=== PATIENT | male | born 1960 | race Caucasian/White ===

== ENCOUNTER 2020-12-15 07:21 | Emergency (ER) | payer OTHER ==
[~2020-12-15] VITALS: Ht 185.4 cm; Wt 112.5 kg
[~2020-12-15 07:21] MED LIST: ACYCLOVIR 400400 MG PO; BACTRIM DS TAB1 EACH PO; BAYER CHEWABLE81 MG PO; BRILINTA90 MG; COREG CR20 MG PO; KEFLEX500 MG PO; LISINOPRIL PO; LISINOPRIL20 MG PO; NORVASC10 MG PO; PREDNISONE 20 M20 M1 PO; PRINIVIL20 M1 PO; SPIRONOLACTONE25 M1 PO; VISTARIL 25 MG25 M1 PO; VITAMIN D PO; ZOCOR40 MG; ZPAK PO
[2020-12-15] MEDS ORDERED: SPIRONOLACTONE25 MG PO (07:31)
[2020-12-15 08:04] LABS: ABSOLUTE BASOPHILS 0.1 thou/uL (0.0-0.2); ABSOLUTE EOSINOPHILS 0.2 thou/uL (0.0-0.7); ABSOLUTE LYMPHOCYTES 1.6 thou/uL (0.8-5.3); ABSOLUTE MONOCYTES 0.7 thou/uL (0.0-1.2); BASOPHILS 0.9 %; EOSINOPHILS 1.6 %; HEMATOCRIT 42.8 % (42.0-52.0); HEMOGLOBIN 14.4 gm/dL (14.0-18.0); LYMPHOCYTES 16.4 %; MCH 31.5 pg (26.0-34.0); MCHC 33.7 g/dL (28.0-37.0); MCV 93.3 fL (80.0-100.0); MONOCYTES 7.5 %; MPV 7.2 fl. (7.2-11.1); NUCLEATED RBCS 0 /100WBC; PLATELET COUNT* 167 thou/uL (150-400); POLYS 73.6 %; RBC 4.58 mil/uL (4.50-6.00); RDW-CV 15.4 % (10.5-14.5); WBC 9.5 thou/uL (4.0-11.0)
[2020-12-15 08:13] LABS: CALCIUM 8.1 mg/dL (8.5-10.1); CREATININE 1.5 mg/dL (0.6-1.3); POTASSIUM 4.1 mmol/L (3.5-5.1)
[2020-12-15 08:23] LABS: ALBUMIN 2.9 g/dL (3.4-5.0); TOTAL BILIRUBIN 0.8 mg/dL (<0.1-1.0); TOTAL PROTEIN 5.8 g/dL (6.4-8.2)
[2020-12-15 10:15] LABS: CHOLESTEROL 184 mg/dL (<200); HDL CHOLESTEROL 53 mg/dL (>40); LDL CHOLESTEROL 122 mg/dL (<100); TC:HDL 3.5 Ratio (Not establshd); TRIGLYCERIDE 49 mg/dL (<150); VLDL 10 mg/dL (<40)
[2020-12-15 10:16] LABS: SERUM ASSESSMENT Clear
[2020-12-15 10:35] VITALS: BP 130/94
--- NOTE | 2020-12-15 14:41 | EKG ---
[place] [address] ELECTROCARDIOGRAM REPORT Name: ROBI,SYBIL Edgar Room: [facility]#: [id number] Admission: 12/15/20 Attend Phys: Discharge: 12/15/20 Date of : 64 Date of Service: 12/15/20811 Report #: [id number] THIS REPORT FOR: //name// [facility] ED Test Date: 2020-12-15 Test Time: 08:12:19 Pat Name: SYBIL ROSENBAUM Department: Room: Gender: Mill Tender Washing: UNKNOWN : 1960 Requested By: Conner Frank Order Number: [id number] MD: Simon Singh Measurements Intervals [place] Rate: 72 P: 51 DE: 219 QRS: -56 QRSD: 137 T: 114 QT: 410 QTc: 449 Interpretive Statements Sinus rhythm Prolonged DE interval Left atrial enlargement Left bundle branch block Baseline wander in lead(s) V2 Compared to ECG 11/15/2014 22:46:08 First degree AV block now present Atrial abnormality now present Left bundle-branch block now present Ventricular premature complex(es) no longer present ST (T wave) deviation no longer present Electronically Signed On 12-15-2020 14:41:13 CDT by Simon Singh [email or web address] <ELECTRONICALLY SIGNED> By: Simon Singh MD, [facility] 12/15/20 1441 1 1 Simon Singh MD, [facility] /EPI
== END 2020-12-15 10:56 | disposition home or self-care (01) ==
LOC: M.ERS 07:21
PROVIDERS: Emergency Medicine Emergency Medical Services; Registered Nurse
DX: I11.0 Hypertensive heart disease with heart failure (principal); I50.9 Heart failure, unspecified; N28.9 Disorder of kidney and ureter, unspecified; E78.5 Hyperlipidemia, unspecified; I25.10 Atherosclerotic heart disease of native coronary artery without angina pectoris; Z79.899 Other long term (current) drug therapy

== ENCOUNTER 2021-07-01 11:43 | Inpatient (IN) | payer OTHER ==
[~2021-07-01] VITALS: Ht 185.4 cm; Wt 113.4 kg
[~2021-07-01 11:43] MED LIST changes: +SPIRONOLACTONE25 MG PO
[2021-07-01 12:34] LABS: HEMOGLOBIN 14.7 gm/dL (14.0-18.0); MCH 30.3 pg (26.0-34.0); MCHC 31.9 g/dL (28.0-37.0); MCV 95.1 fL (80.0-100.0); MPV 7.1 fl. (7.2-11.1); NUCLEATED RBCS 0 /100WBC; PLATELET COUNT* 256 thou/uL (150-400); RBC 4.84 mil/uL (4.50-6.00); RDW-CV 15.8 % (10.5-14.5); WBC 16.5 thou/uL (4.0-11.0)
[2021-07-01 12:44] LABS: CALCIUM 8.6 mg/dL (8.5-10.1); CREATININE 1.8 mg/dL (0.6-1.3); POTASSIUM 4.2 mmol/L (3.5-5.1)
[2021-07-01 12:55] LABS: ALBUMIN 2.9 g/dL (3.4-5.0); TOTAL BILIRUBIN 0.4 mg/dL (<0.1-1.0); TOTAL PROTEIN 5.7 g/dL (6.4-8.2)
[2021-07-01 12:58] VITALS: BP 140/95
[2021-07-01 13:22] LABS: ABSOLUTE LYMPHOCYTES 1.7 thou/uL (0.8-5.3); ABSOLUTE MONOCYTES 0.8 thou/uL (0.0-1.2); CLUMPED PLTS FEW; PLATELET ESTIMATE ADEQUATE
[2021-07-01 13:30] VITALS: BP 131/82
--- NOTE | 2021-07-01 14:26 | EKG ---
[place] [address] ELECTROCARDIOGRAM REPORT Name: SYBIL ROSENBAUM Room: [facility]#: [id number] Admission: 07/01/21 Attend Phys: Discharge: Date of : 64 Date of Service: 07/01/21 1250 Report #: [id number] THIS REPORT FOR: //name// [facility] ED Test Date: 2021-07-01 Test Time: 12:50:48 Pat Name: SYBIL ROSENBAUM Department: Room: Gender: Manager Lvn: : 1960 Requested By: Mauro Hayes Order Number: [id number] MD: Simon Singh Measurements Intervals [place] Rate: 96 P: 42 MS: 196 QRS: -85 QRSD: 155 T: 88 QT: 404 QTc: 511 Interpretive Statements Sinus rhythm Occasional PVCs Left atrial enlargement Right bundle branch block with left anterior hemiblock Baseline wander in lead(s) V2 Compared to ECG 12/15/2020 08:12:19 Ventricular premature complex(es) now present Right bundle-branch block now present First degree AV block no longer present Left bundle-branch block no longer present Electronically Signed On 07-01-2021 14:26:06 OPTIMIZATION SPECIALIST by Simon Singh [email or web address] <ELECTRONICALLY SIGNED> By: Simon Singh MD, [facility] 07/01/21 1426 1250 1250 Simon Singh MD, [facility] /EPI
[2021-07-01 16:14] LABS: CHOLESTEROL 193 mg/dL (<200); HDL CHOLESTEROL 54 mg/dL (>40); LDL CHOLESTEROL 124 mg/dL (<100); TC:HDL 3.6 Ratio (Not establshd); TRIGLYCERIDE 79 mg/dL (<150); VLDL 16 mg/dL (<40)
[2021-07-01 16:18] LABS: SERUM ASSESSMENT Clear
[2021-07-01 17:30] VITALS: BP 108/77
[2021-07-01 21:30] VITALS: BP 105/75
[2021-07-02] VITALS (8 sets, daily range): BP systolic 99–150; BP diastolic 67–93
[2021-07-02 08:06] LABS: CALCIUM 8.2 mg/dL (8.5-10.1); CREATININE 1.6 mg/dL (0.6-1.3); POTASSIUM 4.3 mmol/L (3.5-5.1)
--- NOTE | 2021-07-02 13:51 | NUR ---
PT WENT TO [facility] FOR NST AND BACK TO UNIT AT 1323
--- NOTE | 2021-07-02 15:34 | 2DMMODE ---
[place] [address] 2 D/M-MODE ECHOCARDIOGRAM Name: ROBI,SYBIL Edgar Room: [address] IN [place]#: [id number] Admission: 07/01/21 Attend Phys: Jose Golden Discharge: Date of : 64 Date of Service: 07/02/21 1534 Report #: [id number] THIS REPORT FOR: cc: Chun Fonseca Bradley L. DO Liston, Michael J. MD [facility] ~ APPROVED REPORT Study performed: 07/02/2021 14:43:16 EXAM: Comprehensive 2D, Doppler, and color-flow Echocardiogram Patient Location: In-Patient Room #: er Status: routine BSA: 2.35 HR: 110 bpm BP: 145/70 mmHg Rhythm: NSR Other Information Study Quality: Good Indications Congestive Heart Failure CAD Echo Enhancing Agent Indication: Rule out thrombus Agent(s) / Amount(s) Used: Optison 3 cc 2D Dimensions IVSd: 13.93 (7-11mm) LVOT Diam: 22.31 (18-24mm) LVDd: 61.12 mm PWd: 7.62 (7-11mm) Ascending Ao: 26.76 (22-36mm) LVDs: 51.15 (25-40mm) Aortic Root: 33.86 mm Volumes Left Atrial Volume (Systole) LA ESV Index: 56.30 mL/m2 Aortic Valve AoV Peak Usman.: 1.20 m/s AO Peak Gr.: 5.74 mmHg LVOT Max P.[address] [address] 2 D/M-MODE ECHOCARDIOGRAM Name: SYBIL ROSENBAUM Room: [address]#: [id number] Admission: 07/01/21 Attend Phys: Jose Golden Discharge: Date of : 64 Date of Service: 07/02/21 1534 Report #: [id number] Mean Gr.: 3.50 mmHg LVOT Mean P.53 mmHg LVOT Max V: 0.53 m/s AO V2 VTI: 14.37 cm LVOT Mean V: 0.33 m/s PRANAV (VTI): 1.79 cm2 LVOT V1 VTI: 6.60 cm TDI Medial E' Usman.: 0.05 m/s Pulmonary Valve PV Peak Usman.: 1.14 m/s PV Peak Gr.: 5.21 mmHg Tricuspid Valve RAP Estimate: 15.00 mmHg TR Peak Gr.: 52.20 mmHg RVSP: 67.00 mmHg PA Pressure: 67.00 mmHg Left Ventricle Left ventricle is mildly dilated. There is severe global hypokinesis of the left ventricle. Mild concentric left ventricular hypertrophy. Left ventricular systolic function is severely decreased. There is an apical thrombus in the left ventricle. LVEF is 20-25%. This study is not technically sufficient to allow evaluation of the LV diastolic function. Right Ventricle Right ventricle is mildly dilated. The right ventricular systolic function is normal. Atria Left atrium is moderately dilated. Right atrium is mildly dilated. Aortic Valve Mild aortic valve sclerosis. No aortic regurgitation is present. Mild aortic stenosis. Mitral Valve The mitral valve is normal in structure. Mild mitral regurgitation. No evidence of mitral valve stenosis. Tricuspid Valve The tricuspid valve is normal in structure. Trace tricuspid regurgitation. Moderate pulmonary hypertension. Pulmonic Valve The pulmonary valve is normal in structure. [place] [address] 2 D/M-MODE ECHOCARDIOGRAM Name: SYBIL ROSENBAUM Room: [address] IN [facility]#: [id number] Admission: 07/01/21 Attend Phys: Jose Golden Discharge: Date of : 64 Date of Service: 07/02/21 1534 Report #: [id number] valvular regurgitation. Great Vessels The aortic root is normal in size. IVC is dilated and collapses <50% with inspiration. Pericardium There is no pericardial effusion. <Conclusion> Left ventricle is mildly dilated. Mild concentric left ventricular hypertrophy. Left ventricular systolic function is severely decreased. LVEF is 20-25%. There is severe global hypokinesis of the left ventricle. There is an apical thrombus in the left ventricle. Right ventricle is mildly dilated. Left atrium is moderately dilated. Right atrium is mildly dilated. Mild aortic valve sclerosis. Mild aortic stenosis. Mild mitral regurgitation. Trace tricuspid regurgitation. Moderate pulmonary hypertension. IVC is dilated and collapses <50% with inspiration. <ELECTRONICALLY SIGNED> By: Yaw Saucedo MD, FACC 07/02/21 1534 1534 1534 Yaw Saucedo MD, FACC /INF
--- NOTE | 2021-07-02 16:28 | NUR ---
UPDATED PT'S RE: PLAN OF CARE.
--- NOTE | 2021-07-02 16:40 | NUR ---
admit to rm 222 oriented to rm and call light denies pain instructed to call for assistance
--- NOTE | 2021-07-02 17:37 | CARDNUC ---
[place] [address] CARDIAC NUCLEAR IMAGING REPORT Name: SYBIL ROSENBAUM Room: [address] IN [facility]#: [id number] Admission: 07/01/21 Attend Phys: Jose Golden Discharge: Date of : 64 Date of Service: 07/02/21 1737 Report #: [id number] THIS REPORT FOR: cc: Chun Fonseca Bradley L. DO Liston, Michael J. MD [facility] ~ APPROVED REPORT Imaging Protocol: Stress Tc-99m/Rest Tc-99m 1 day Study performed: 07/01/2021 14:36:00 Indication: Dyspnea Patient Location: In-Patient Stress Nurse: Ludy Albaardo RN Ht: 6 ft 1 in Wt: 250 lbs BSA: 2.37 m2 BMI: 32.97 Medical History Medical History: CAD s/p AK, CAD s/p stent Medications: asa-81, carvedilol, lisinopril, spironolactone Allergies: No known drug allergies Cardiac Risk Factors: Age, HTN, Hyperlipidemia Previous Cardiac Procedures: PCI, Myocardial infarction Exercise History: Sedentary Meds Held (24 hrs): carvedilol Resting Data Rest SPECT myocardial perfusion imaging was performed in supine position 30 minutes following the intravenous injection of 9.8 mCi of Tc-99m Sestamibi. Time of rest injection: 08:25 The images were gated to evaluate regional wall motion and calculate left ventricular ejection fraction. Administration Route: IV Administration Site: Right Wrist Pharmacologic Stress Pharmacologic stress test was performed by injecting Regadenoson 0.4 mg IV push over 10-15 seconds immediately followed by the intravenous injection of 30.4 mCi of Tc-99m Sestamibi. Time of stress injection: 10:50 Administration Route: [place] [address] CARDIAC NUCLEAR IMAGING REPORT Name: SYBIL ROSENBAUM Room: [address]#: [id number] Admission: 07/01/21 Attend Phys: Jose Golden Discharge: Date of : 64 Date of Service: 07/02/21 1737 Report #: [id number] Administration Site: Right Wrist Heart Rate at time of stress injection: 114 bpm. Gated Stress SPECT was performed 90 minutes after stress injection. The images were gated to evaluate regional wall motion and calculate left ventricular ejection fraction. Stress Test Details Stress Test: Pharmacologic stress testing performed using 0.4 mg of regadenoson per 5 mL given IV over 10 seconds. Reason for pharmacologic stress test: physical limitation. HR Max Heart Rate (APMHR): 162 bpm Resting HR: 109 bpm Target HR (85% APMHR): 137 bpm Max HR Achieved: 117 bpm % of APMHR: 72 Recovery HR: 114 bpm BP Resting BP: 121/94 mmHg Max BP: 128/96 mmHg Recovery BP: 119/94 mmHg ECG Resting ECG: Sinus tachycardia with left bundle branch block Stress ECG: Sinus tachycardia with left bundle branch block ST Change: None Arrhythmia: PVCs Recovery ECG: Sinus tachycardia with left bundle branch block Recovery ST Change: None Recovery Arrhythmia: PVCs Clinical Reason for Termination: Completed protocol The patient tolerated Lexiscan protocol without significant cardiac symptoms. He did have some abdominal pain relieved with caffeine. Nurse Comments que had troponin of 87 yesterday with troponin of [address] Francisco ARMENDARIZ and Jodi Durand said that it is ok to do emerson. Patient was given 60 mg of caffeine ivp after 4 min post lexe injection for abdominal pain. [place] [address] CARDIAC NUCLEAR IMAGING REPORT Name: SYBIL ROSENBAUM Room: [address]#: [id number] Admission: 07/01/21 Attend Phys: Jose Goldne Discharge: Date of : 64 Date of Service: 07/02/21 1737 Report #: [id number] Stress ECG Conclusion The baseline twelve-lead EKG shows sinus tachycardia with left bundle branch block and occasional PVCs. EKGs obtained during and post Lexiscan infusion show continued sinus tachycardia with left bundle branch block and PVCs. No acute changes were noted with Lexiscan stress. Study Quality Study: Fair Artifact: Moderate Diaphragmatic artifact Study Data At rest, the left ventricular ejection fraction was 15%.. Post stress, the left ventricular ejection was 8%.. TID = 1.02. Perfusion Perfusion images obtained at rest show severe photopenia involving the basal to apical inferior wall and apex. This extends to the septum. Perfusion images obtained post Lexiscan stress show a persistent defect from the base to apical inferior wall and apex. No reversible defects were identified. There is significant diaphragmatic attenuation artifact. These images appear to represent apical and at least in part inferior wall infarct without ischemia. Wall Motion Severe global hypokinesis without obvious focal wall motion abnormality. Nuclear Conclusion ECG Findings: non-diagnostic Clinical Findings: negative for ischemia Nuclear Findings: negative for ischemia Exercise Capacity: not assessed Left Ventricular Function: abnormal Risk Study: high Perfusion images show probable inferior and apical infarct without ischemia. The left ventricle is dilated. There is severe global hypokinesis. This is a high risk study based on severe LV systolic dysfunction. <Conclusion> The baseline twelve-lead EKG shows sinus tachycardia with left bundle branch block and occasional PVCs. EKGs obtained during and post Lexiscan infusion show continued sinus [place] [address] CARDIAC NUCLEAR IMAGING REPORT Name: ROBI,SYBIL Edgar Room: [address] IN [facility]#: [id number] Admission: 07/01/21 Attend Phys: Jose Golden Discharge: Date of : 64 Date of Service: 07/02/21 1737 Report #: [id number] branch block and PVCs. No acute changes were noted with Lexiscan stress. <ELECTRONICALLY SIGNED> By: Yaw Saucedo MD, FACC 07/02/21 1737 36 36 Yaw Saucedo MD, FACC /INF
[2021-07-03] VITALS: BP 112/64
[2021-07-03 04:00] VITALS: BP 127/78
--- NOTE | 2021-07-03 04:25 | NUR ---
RESTING WELL. PT IS HAVING PERIODS OF SLEEP APNEA, O2 SAT 88-91%. O2 APPLIED AT 2L/NC AT APPROX 0000 TONIGHT. TELETRY ON SHOWING SR WITH BBB AND FREQ PVC. PT HAD 2 SHORT RUNS OF V-TACH , ASYMPTOMATIC WITH EACH OF THES. PT STANDING TO VOID AFTER IV LASIX GIVEN. CAITLIN LOWER EXTREMITIES WITH 2+ EDEMA.
--- NOTE | 2021-07-03 07:25 | NUR ---
CHANGE OF SHIFT REPORT GIVEN PATIENT SEEN AT BEDSIDE, IN BED ASLEEP ASSUMED PATIENT CARE
[2021-07-03 08:00] VITALS: BP 108/78
[2021-07-03 08:21] LABS: CALCIUM 7.9 mg/dL (8.5-10.1); CREATININE 1.6 mg/dL (0.6-1.3); POTASSIUM 3.6 mmol/L (3.5-5.1)
[2021-07-03 09:47] LABS: ABSOLUTE BASOPHILS 0.1 thou/uL (0.0-0.2); ABSOLUTE EOSINOPHILS 0.1 thou/uL (0.0-0.7); ABSOLUTE LYMPHOCYTES 1.2 thou/uL (0.8-5.3); ABSOLUTE NEUTROPHILS 5.3 thou/uL (1.6-8.1); BASOPHILS 0.7 %; EOSINOPHILS 1.9 %; HEMATOCRIT 42.2 % (42.0-52.0); HEMOGLOBIN 13.6 gm/dL (14.0-18.0); LYMPHOCYTES 16.1 %; MCH 30.2 pg (26.0-34.0); MCHC 32.2 g/dL (28.0-37.0); MCV 93.6 fL (80.0-100.0); MONOCYTES 12.6 %; MPV 6.9 fl. (7.2-11.1); NUCLEATED RBCS 0 /100WBC; PLATELET COUNT* 176 thou/uL (150-400); POLYS 68.7 %; RBC 4.51 mil/uL (4.50-6.00); RDW-CV 14.9 % (10.5-14.5); WBC 7.7 thou/uL (4.0-11.0)
[2021-07-03 11:41] VITALS: BP 96/62
[2021-07-03 16:03] VITALS: BP 103/66
--- NOTE | 2021-07-03 18:30 | NUR ---
patient back to post icd placement awake and alert denies pain call light in reach and at bedside l upper chest drsg c/d/i with immobilizer in place dinner ordered
[2021-07-04] VITALS: BP 105/66
[2021-07-04 04:00] VITALS: BP 116/56
[2021-07-04 06:17] LABS: ABSOLUTE BASOPHILS 0.1 thou/uL (0.0-0.2); ABSOLUTE EOSINOPHILS 0.2 thou/uL (0.0-0.7); ABSOLUTE LYMPHOCYTES 1.1 thou/uL (0.8-5.3); ABSOLUTE MONOCYTES 0.8 thou/uL (0.0-1.2); ABSOLUTE NEUTROPHILS 4.8 thou/uL (1.6-8.1); BASOPHILS 0.9 %; EOSINOPHILS 2.7 %; HEMATOCRIT 44.5 % (42.0-52.0); HEMOGLOBIN 14.4 gm/dL (14.0-18.0); LYMPHOCYTES 15.9 %; MCH 30.6 pg (26.0-34.0); MCHC 32.4 g/dL (28.0-37.0); MCV 94.6 fL (80.0-100.0); MONOCYTES 11.8 %; MPV 7.4 fl. (7.2-11.1); NUCLEATED RBCS 0 /100WBC; PLATELET COUNT* 163 thou/uL (150-400); POLYS 68.7 %; RDW-CV 15.6 % (10.5-14.5)
[2021-07-04 07:05] LABS: CALCIUM 7.9 mg/dL (8.5-10.1); CREATININE 1.7 mg/dL (0.6-1.3); POTASSIUM 3.5 mmol/L (3.5-5.1)
--- NOTE | 2021-07-04 07:55 | NUR ---
PATIENT HAS SLEPT OFF AND ON DURING THE NIGHT. VSS ON RA. PATIENT UP WITH SBA WHEN USING THE URINAL. IMMOBILIZER IN PLACE TO LEFT ARM. DRESSING TO LEFT CHEST IS C/D/I. MEDICATIONS GIVEN ORDERED AND CHARTED. LUNG SOUNDS ARE WHEEZY. IV IN LEFT FOREARM-DOBUTAMINE DRIP @ 5MCG. PATIENT INSTRUCTED TO CALL NURSE WHEN NEEDING ASSISTANCE. HOURLY ROUNDS MADE. WILL CONTINUE WITH PLAN OF CARE AND NURSING TO MONITOR.
[2021-07-04 08:00] VITALS: BP 98/67
[2021-07-04 11:39] VITALS: BP 91/57
--- NOTE | 2021-07-04 13:00 | CARD ---
[place] [address] CARDIAC CATH REPORT Name: SYBIL ROSENBAUM [facility] IN [facility]#: [id number] Admission: 07/01/21 Attend Phys: Hosea Renee Discharge: Date of : 64 Report #: [id number] THIS REPORT FOR: cc: Chun Fonseca Bradley L. DO Liston, Michael J. MD [facility] ~ APPROVED REPORT Study performed: 07/03/2021 16:31:13 Patient Status: In-Patient Room #: 222 Event Personnel: Yaw Saucedo Classification Control Clerk, Amarilis De La Cruz RN RN, Kimberlee Perez RTR Monitor, Swathi Hernandez Scrub Exam: Insertion of Dual Chamber Permanent ICD Indications: Primary prevention. The patient is a 60 year-old male with a history of Combined ischemic and nonischemic cardiomyopathy.. Patient Info Last EF%: 25% Date: 07/01/2021 Conscious Sedation Start time: 17:15 End Time: 17:50 Fentanyl 50 mcg Versed 2 mg Implanted Devices: Biotronik ICD Generator: Rivacor 7 DR-T [id number] Biotronik A Lead: Solia S 53 [id number] Biotronik V Lead: Plexa ProMRI S 65 [id number] Procedure The patient underwent informed consent. We discussed the details of the procedure including the risks, which include, but not limited to bleeding, infection, vascular damage, cardiac perforation, and pneumothorax. He understood these risks and was willing to proceed. As such, he was brought to the EP/Cardiac Catheterization laboratory in a fasting and sedated state and prepped and draped in a sterile fashion, received IV antibiotics prior to initiation of the procedure and a venogram was performed showing patency of the left axillary vein. The patient underwent conscious sedation, with no related complications. The patient was brought to the EP/Cardiac [place] [address] CARDIAC CATH REPORT Name: SYBIL ROSENBAUM Room: [address]#: [id number] Admission: 07/01/21 Attend Phys: Hosea Renee Discharge: Date of : 64 Report #: [id number] and the left chest and shoulder were prepped and draped in a sterile manner. During this case, Fluoroscopy and omnipaque 20cc were used for imaging. IV conscious sedation was used throughout procedure with appropriate monitoring and was performed in the presence of a registered nurse who was an independent trained observer other than the physician performing the procedure. The left subclavian region was infiltrated with 2% Lidocaine with Epinephrine subcutaneous anesthesia. A transverse incision was made in the left upper chest cavity. The subcutaneous pocket was formed via blunt dissection. Percutaneous venous access was achieved and an introducer sheath was inserted into the left Subclavian vein. Through the introducer sheaths the atrial and ventricular lead wires were positioned in the right atrial appendage and right ventricular apex respectively. Capturing and sensing thresholds were verified. The atrial and ventricular pacing ICD leads were then secured within the pocket using the designated cuff and 0 silk suture. The pocket was then flushed with antibiotic solution. Next the dual-chamber pacing ICD generator was attached to the atrial and pacing ICD lead. The generator and redundant lead were then placed within the device pocket. The deep tissues were closed utilizing interrupted stitches of 2-0 Vicryl. The skin incision was then closed with a single subcuticular stitch of 4-0 Vicryl. Several Steri-Strips were placed across the incision. A sterile Telfa dressing was then covered with a Tegaderm. The patient tolerated the procedure well without complication. Electrode Parameters P Wave: 2.3 mV R Wave: 15.6 mV Atrial Threshold: 2.0 V at 0.40 ms Ventricular Threshold: 0.5 V at 0.40 ms Atrial Resistance: 535 ohms Ventricular Resistance: 747 ohms Findings Specimens Removed: No Estimated Blood Loss: 5 ml Conclusion 1. Combined nonischemic and ischemic cardiomyopathy. 2. Successful placement of a dual-chamber pacing ICD [place] [address] CARDIAC CATH REPORT Name: SYBIL ROSENBAUM Room: [address] IN [facility].#: [id number] Admission: 07/01/21 Attend Phys: Hosea Renee Discharge: Date of : 64 Report #: [id number] Recommendations 1. Follow-up site check in 1 week. 2. Follow-up device interrogation 4 weeks. <ELECTRONICALLY SIGNED> By: Yaw Saucedo MD, FACC 07/04/21 1300 1300 1300[facility]quel Saucedo MD, FACC /INF
[2021-07-04 16:05] VITALS: BP 90/53
[2021-07-04 20:00] VITALS: BP 114/69
[2021-07-05] VITALS (7 sets, daily range): BP systolic 83–124; BP diastolic 54–71
--- NOTE | 2021-07-05 07:22 | NUR ---
Shift fairly uneventful. Pt AOx4, running SA w/ BBB/PVC's on telemetry. Pt did have very brief run of VTACH around 0500. Pt's hearts sounds S1S2 on auscultation, lungs are coarse w/ wheezes. Pt SO2 95% on room air. Pt is medically stable at this time.
[2021-07-05 11:54] LABS: CALCIUM 7.8 mg/dL (8.5-10.1); CREATININE 1.4 mg/dL (0.6-1.3); POTASSIUM 3.5 mmol/L (3.5-5.1)
--- NOTE | 2021-07-05 13:09 | EKG ---
[place] [address] ELECTROCARDIOGRAM REPORT Name: SYBIL ROSENBAUM Room: [address] ADM IN [facility].R.#: [id number] Admission: 07/01/21 Attend Phys: Jose Golden Discharge: Date of : 64 Date of Service: 07/03/21 0903 Report #: [id number] THIS REPORT FOR: //name// [facility] Test Date: 2021-07-03 Test Time: 09:03:43 Pat Name: SYBIL ROSENBAUM Department: Room: [address] Gender: M Crop Picker: SB : 1960 Requested By: Neelima Reyes Order Number: [id number] Reading MD: Yaw Saucedo Measurements Intervals [place] Rate: 76 P: 57 [place]: 199 QRS: -66 QRSD: 148 T: 115 QT: 446 QTc: 502 Interpretive Statements Sinus rhythm Multiform ventricular premature complexes Consider left atrial enlargement Nonspecific IVCD with LAD Compared to ECG 07/01/2021 12:50:48 Intraventricular conduction delay now present Electronically Signed On 07-05-2021 13:09:09 AIRPLANE ELECTRICIAN by Yaw Saucedo [email or web address] <ELECTRONICALLY SIGNED> By: Yaw Saucedo MD, FACC 07/05/21 1309 0903 0903 Yaw Saucedo MD, FACC /EPI
--- NOTE | 2021-07-05 18:00 | NUR ---
RECEIVED REPORT. ASSUMED CARE OF PT AROUND 0730. AM ASSESSMENT AND VITALS COMPLETED CHARTED. MEDS PER EMAR. PT HYPOTENSIVE THIS AFTRERNOON AND TIRED. SPOKE TO DR ARIZA - ORDERS RECEIVED FOR 500CC FLUID BOLUS. BP WNL AFTER BOLUS. DOBUTAMINE GTT CONTIUNES PER ORDERS. JOB ESTIMATOR IN PLACE. CALL ARORA WITHIN REACH.
[2021-07-06 04:00] VITALS: BP 117/81
[2021-07-06 05:04] LABS: HEMATOCRIT 43.5 % (42.0-52.0); MCH 30.1 pg (26.0-34.0); MCHC 32.3 g/dL (28.0-37.0); MCV 93.2 fL (80.0-100.0); MPV 7.3 fl. (7.2-11.1); RBC 4.66 mil/uL (4.50-6.00); RDW-CV 15.2 % (10.5-14.5); WBC 7.1 thou/uL (4.0-11.0)
[2021-07-06 05:28] LABS: ALBUMIN 2.1 g/dL (3.4-5.0); CALCIUM 7.5 mg/dL (8.5-10.1); CREATININE 1.5 mg/dL (0.6-1.3); MAGNESIUM 2.4 mg/dL (1.8-2.4); TOTAL BILIRUBIN 0.5 mg/dL (<0.1-1.0); TOTAL PROTEIN 4.9 g/dL (6.4-8.2)
[2021-07-06 08:00] VITALS: BP 159/80
[2021-07-06 13:31] VITALS: BP 92/59
--- NOTE | 2021-07-06 15:30 | NUR ---
CM ASSESSMENT: PT A&O, INDEPENDENT WITH ADL'S AND ACTIVE. PT USES 0 DME. NO CM D/C PLANNING NEEDS ANTICIPATED AT THIS TIME. CM WILL REMAIN AVAILABLE TO ASSIST AND FOLLOW NEEDED.
[2021-07-06 16:23] VITALS: BP 93/64
[2021-07-06 17:05] LABS: MAGNESIUM 2.2 mg/dL (1.8-2.4); POTASSIUM 4.4 mmol/L (3.5-5.1)
--- NOTE | 2021-07-06 19:55 | NUR ---
I ASSUMED CARE OF THE PATIENT AT 0700. HE IS ALERT AND ORIENTED X4 AND IS UP AD DINESH IN THE ROOM. BED IS IN THE LOW LOCKED POSITION AND CALL LIGHT IS IN REACH. PATIENT NEEDS ARE MET DURING HOURLY ROUNDING. PAIN IS DENIED. CARDIOLOGY IS CONTACTED ABOUT HIS HEARTRATE, NEW ORDERS ARE OBTAINED. WILL CONTINUE TO MONITOR.
[2021-07-06 20:00] VITALS: BP 118/81
[2021-07-07] VITALS: BP 108/69
[2021-07-07 04:00] VITALS: BP 100/66
[2021-07-07 05:35] LABS: HEMATOCRIT 43.8 % (42.0-52.0); MCH 30.1 pg (26.0-34.0); RBC 4.66 mil/uL (4.50-6.00); RDW-CV 15.3 % (10.5-14.5)
[2021-07-07 05:52] LABS: ALBUMIN 2.2 g/dL (3.4-5.0); CALCIUM 7.8 mg/dL (8.5-10.1); CREATININE 1.5 mg/dL (0.6-1.3); MAGNESIUM 2.2 mg/dL (1.8-2.4); POTASSIUM 4.1 mmol/L (3.5-5.1); TOTAL BILIRUBIN 0.4 mg/dL (<0.1-1.0); TOTAL PROTEIN 5.2 g/dL (6.4-8.2)
[2021-07-07 08:30] VITALS: BP 105/73
[2021-07-07] MEDS ORDERED: SPIRONOLACTONE25 MG PO (08:45)
[2021-07-07] MEDS ORDERED: ATORVASTATIN CA20 MG PO (08:45)
[2021-07-07] MEDS ORDERED: ENTRESTO 24 MG1 EACH PO (08:45)
[2021-07-07] MEDS ORDERED: CARVEDILOL12.5 MG PO (08:45)
[2021-07-07] MEDS ORDERED: CEFDINIR300 MG PO (10:18)
[2021-07-07] MEDS ORDERED: BUMETANIDE 1 MG1 M1 PO (10:18)
[2021-07-07] MEDS ORDERED: DOXYCYCLINE 10100 MG PO (10:18)
[2021-07-07 12:00] VITALS: BP 103/57
[2021-07-07 14:44] VITALS: BP 103/57
--- NOTE | 2021-07-07 15:59 | NUR ---
PLAN FOR THE PT TO D/C HOME TODAY WITH SELF-CARE. NO CM D/C PLANNING NEEDS ANTICIPATED. CM WILL REMAIN AVAILABLE TO ASSIST AND FOLLOW NEEDED.
== END 2021-07-07 15:30 | disposition home or self-care (01) | DRG 226 ==
LOC: M.ERS 11:43 → M.2W 13:23 → M.TBA-ER 13:23 → M.TBA 13:23 → M.2W 07-02 16:52
PROVIDERS: Emergency Medicine; Internal Medicine; Nurse Practitioner Family; Registered Nurse; ADMIT Internal Medicine; ATTEND Internal Medicine
PROC: 02HK3KZ Insertion of Defibrillator Lead into Right Ventricle, Percutaneous Approach (ICD-10-PCS; principal; 2021-07-03)
PROC: 0JH608Z Insertion of Defibrillator Generator into Chest Subcutaneous Tissue and Fascia, Open Approach (ICD-10-PCS; principal; 2021-07-03)
PROC: 02H63KZ Insertion of Defibrillator Lead into Right Atrium, Percutaneous Approach (ICD-10-PCS; principal; 2021-07-03)
DX: I13.0 Hypertensive heart and chronic kidney disease with heart failure and stage 1 through stage 4 chronic kidney disease, or unspecified chronic kidney disease (principal); J15.6 Pneumonia due to other Gram-negative bacteria; N17.9 Acute kidney failure, unspecified; I50.23 Acute on chronic systolic (congestive) heart failure; I42.8 Other cardiomyopathies; I25.10 Atherosclerotic heart disease of native coronary artery without angina pectoris; E78.5 Hyperlipidemia, unspecified; I25.5 Ischemic cardiomyopathy; N18.9 Chronic kidney disease, unspecified; E66.01 Morbid (severe) obesity due to excess calories; G47.33 Obstructive sleep apnea (adult) (pediatric); D69.6 Thrombocytopenia, unspecified; Z20.822 Contact with and (suspected) exposure to COVID-19; Z95.5 Presence of coronary angioplasty implant and graft; Z85.72 Personal history of non-Hodgkin lymphomas; Z82.49 Family history of ischemic heart disease and other diseases of the circulatory system; Z68.33 Body mass index [BMI] 33.0-33.9, adult; Z28.21 Immunization not carried out because of patient refusal